=== PATIENT | male | born 1960 | race Caucasian/White ===

== ENCOUNTER → 2016-12-01 | Outpatient (CLI) | payer MEDICAID ==
[~2016-12-01] MED LIST: ALBU8.5H3 INH; AMLO5TAB2 PO; CARV6.252 PO; FLUT1DIS5 IH; MORP-52 PO; OXYC10TA6 PO; OXYC5CAP4; REGADENOSON 0.4 MG/5 ML SYRINGE ONE; SIMV1POW; SIMV20TA3 PO; TIOT18CA INH; [UNRECOGNIZED DRUG - CODE]
== END | disposition home or self-care (01) ==
LOC: CFH 11:53
PROVIDERS: ATTEND Internal Medicine Cardiovascular Disease
DX: R07.9 Chest pain, unspecified (principal)
CPT/HCPCS: 78452; 93017; A9502; J2785

== ENCOUNTER 2017-09-19 09:24 | Inpatient (IN) | payer MEDICAID ==
[~2017-09-19] VITALS: Ht 177.8 cm; Wt 61.2 kg
[~2017-09-19 09:24] MED LIST changes: -ALBU8.5H3 INH; +ALBU8.5H8 INH; +OXYC5CAP2; -OXYC5CAP4; +PANT40TA5 PO; -REGADENOSON 0.4 MG/5 ML SYRINGE ONE; +SUMA100T4 PO; +TAMS-11 PO
[2017-09-19] MEDS ORDERED: FINA5TAB4 PO (09:43)
[2017-09-19] MEDS ORDERED: SODIUM CHLORIDE 0.9% 1,000 ML IV ONE (10:20)
[2017-09-19] MEDS ORDERED: SODIUM CHLORIDE 0.9% 1,000ML IVBOLUS ONE (10:30)
[2017-09-19] MEDS ORDERED: SODIUM CHLORIDE FLUSH 10ML SYR IVF ONE (10:30)
[2017-09-19] MEDS ORDERED: ASPIRIN 81 MG TABLET CHEW PO ONE (10:30)
[2017-09-19] MEDS ORDERED: LORazepam 2 MG/ML, 1ML ONE ×2 (10:32→13:12)
[2017-09-19] MEDS: LORazepam 2 MG/ML, 1ML IVPush PRN ×3 (10:35→13:14)
[2017-09-19 10:50] LABS: BASOPHILS # (AUTO) 0.09 x10^3/uL (0-0.1); BASOPHILS % (AUTO) 1 % (0-1); EOSINOPHILS # (AUTO) 0.03 x10^3/uL (0-0.4); EOSINOPHILS % (AUTO) 0 % (1-7); LYMPHOCYTES # (AUTO) 2.15 x10^3/uL (1-3.4); LYMPHOCYTES % (AUTO) 13 % (22-44); MD NO; MEAN CORPUSCULAR HEMOGLOBIN 32.6 pg (27.5-34.5); MEAN CORPUSCULAR HGB CONC 34.2 g/dL (33.2-36.2); MEAN CORPUSCULAR VOLUME 95.2 fL (81-97); MEAN PLATELET VOLUME 7.6 fL (7.4-10.4); MONOCYTES # (AUTO) 1.44 x10^3/uL (0.2-0.8); MONOCYTES % (AUTO) 9 % (2-9); NEUTROPHILS # (AUTO) 12.36 x10^3/uL (1.8-6.8); NEUTROPHILS % (AUTO) 77 % (42-75); PLATELET COUNT 282 x10^3/uL (130-400); RED BLOOD COUNT 5.39 x10^6/uL (4.38-5.82)
[2017-09-19 11:00] LABS: INTERNATIONAL NORMALIZED RATIO 1.15 (0.93-1.1); PROTHROMBIN TIME 11.9 Seconds (9.6-11.5)
[2017-09-19 11:03] LABS: ALANINE AMINOTRANSFERASE 64 U/L (12-78); ALBUMIN 3.7 g/dL (3.4-5.0); ANION GAP 9 mmol/L (5-15); CALCIUM 8.7 mg/dL (8.5-10.1); CHLORIDE 106 mmol/L (98-107); CREATININE 0.98 mg/dL (0.7-1.3)
[2017-09-19 11:08] LABS: ALKALINE PHOSPHATASE 108 U/L (45-117); BILIRUBIN,TOTAL 0.5 mg/dL (0.2-1.0); TOTAL PROTEIN 7.1 g/dL (6.4-8.2); TROPONIN I < 0.015 ng/mL (0.000-0.045)
[2017-09-19] MEDS ORDERED: THIAMINE 100MG TABLET ONE (11:19)
[2017-09-19] MEDS ORDERED: THIAMINE 100MG TABLET PO ONE (11:30)
[2017-09-19] MEDS ORDERED: ENOXAPARIN 40 MG/0.4 ML SQ SCH (12:00)
[2017-09-19] MEDS ORDERED: LABETALOL 5MG/ML, 20ML IVPush PRN (12:00)
[2017-09-19] MEDS ORDERED: ONDANSETRON 2MG/ML, 2ML IVPush PRN (12:00)
[2017-09-19] MEDS ORDERED: DOCUSATE 100 MG CAPSULE PO PRN (12:00)
[2017-09-19] MEDS ORDERED: ONDANSETRON ODT 4 MG PO PRN (12:00)
[2017-09-19] MEDS ORDERED: SODIUM CHLORIDE FLUSH 10ML SYR IVF PRN (12:00)
[2017-09-19] MEDS ORDERED: AMLODIPINE 5 MG TABLET PO SCH (12:00)
[2017-09-19 12:48] LABS: FREE T4 (FREE THYROXINE) 0.84 ng/dL (0.76-1.46); TROPONIN I < 0.015 ng/mL (0.000-0.045)
[2017-09-19] MEDS ORDERED: LORazepam 2 MG/ML, 1ML IV PRN ×4 (13:00)
[2017-09-19] MEDS ORDERED: LORazepam 1MG TABLET PO PRN ×4 (13:00)
[2017-09-19] MEDS ORDERED: LORazepam 0.5MG TABLET PO PRN (13:00)
[2017-09-19] MEDS ORDERED: PANTOPRAZOLE 20MG TABLET ONE (13:12)
[2017-09-19] MEDS ORDERED: AMLODIPINE 5 MG TABLET ONE (13:12)
[2017-09-19] MEDS ORDERED: ENOXAPARIN 40 MG/0.4 ML ONE (13:13)
[2017-09-19] MEDS: PANTOPROZOLE 40MG TABLET PO SCH ×2 (13:15→20:06)
[2017-09-19] MEDS ORDERED: LACTATED RINGERS 1,000 ML IV SCH (15:00)
[2017-09-19] MEDS ORDERED: MAGNESIUM SULFATE PMX 2GM/50ML 50 ML IV ONE (15:00)
[2017-09-19] MEDS ORDERED: POTASSIUM CHLORIDE 20 MEQ, MAGNESIUM SULFATE 1 GM, FOLIC ACID 1 MG, THIAMINE 100 MG, MV... IV SCH (15:00)
[2017-09-19 15:39] VITALS: BP 118/73
[2017-09-19] MEDS: LORazepam 2 MG/ML, 1ML IV PRN (15:51)
[2017-09-19] MEDS ORDERED: ALBUTEROL SULFATE 2.5 MG/3 ML NPPB PRN (16:00)
[2017-09-19] MEDS ORDERED: NICOTINE 7 MG/24 HR PATCH.TD24 TD SCH (17:00)
[2017-09-19 17:11] LABS: TROPONIN I < 0.015 ng/mL (0.000-0.045)
[2017-09-19 19:07] VITALS: BP 147/87
[2017-09-19 19:44] VITALS: BP 131/78
[2017-09-19] MEDS ORDERED: SALMETEROL IH SCH (21:00)
[2017-09-19] MEDS ORDERED: ALBUTEROL/IPRATROPIUM 2.5MG/0.5MG, 3 ML NPPB SCH (21:00)
[2017-09-19] MEDS ORDERED: SIMVASTATIN 20 MG TABLET PO SCH (21:00)
[2017-09-19] MEDS ORDERED: FLUTICASONE IH SCH (21:00)
[2017-09-19] MEDS ORDERED: CARVEDILOL 6.25 MG TABLET PO SCH (21:00)
[2017-09-20 01:29] VITALS: BP 124/76
[2017-09-20] MEDS: LORazepam 2 MG/ML, 1ML IV PRN (04:45)
[2017-09-20 05:15] LABS: BASOPHILS # (AUTO) 0.05 x10^3/uL (0-0.1); BASOPHILS % (AUTO) 1 % (0-1); EOSINOPHILS # (AUTO) 0.05 x10^3/uL (0-0.4); EOSINOPHILS % (AUTO) 1 % (1-7); LYMPHOCYTES % (AUTO) 13 % (22-44); MD NO; MEAN CORPUSCULAR HEMOGLOBIN 32.5 pg (27.5-34.5); MEAN CORPUSCULAR HGB CONC 33.8 g/dL (33.2-36.2); MEAN PLATELET VOLUME 7.7 fL (7.4-10.4); MONOCYTES # (AUTO) 1.19 x10^3/uL (0.2-0.8); MONOCYTES % (AUTO) 12 % (2-9); NEUTROPHILS # (AUTO) 7.46 x10^3/uL (1.8-6.8); NEUTROPHILS % (AUTO) 74 % (42-75); PLATELET COUNT 239 x10^3/uL (130-400); RED BLOOD COUNT 4.76 x10^6/uL (4.38-5.82); RED CELL DISTRIBUTION WIDTH 12.8 % (9.4-14.8)
[2017-09-20 05:20] LABS: CALCIUM 8.2 mg/dL (8.5-10.1); CHLORIDE 110 mmol/L (98-107)
[2017-09-20 05:34] LABS: ALANINE AMINOTRANSFERASE 43 U/L (12-78); ALBUMIN 2.9 g/dL (3.4-5.0); ALKALINE PHOSPHATASE 93 U/L (45-117); ANION GAP 8 mmol/L (5-15); CREATININE 0.74 mg/dL (0.7-1.3); TOTAL PROTEIN 5.8 g/dL (6.4-8.2)
[2017-09-20 06:50] VITALS: BP 126/78
[2017-09-20] MEDS ORDERED: SODIUM PHOSPHATE 4 MEQ/ML IV SCH (07:00)
[2017-09-20] MEDS ORDERED: SODIUM PHOSPHATE 30 MMOL in SODIUM CHLORIDE 0.9% 500 ML IV ONE (07:00)
[2017-09-20] MEDS ORDERED: SENNA/DOCUSATE TABLET PO SCH (09:00)
[2017-09-20] MEDS ORDERED: TAMSULOSIN 0.4 MG CAP.ER.24H PO SCH (09:00)
[2017-09-20] MEDS ORDERED: PANTOPROZOLE 40MG TABLET PO SCH (09:00)
[2017-09-20] MEDS ORDERED: FINASTERIDE 5 MG TABLET PO SCH (09:00)
== END 2017-09-20 08:30 | disposition left against medical advice (07) | DRG 313 ==
LOC: ED 11:37 → EDIP 11:38 → ED 11:59 → 4EST 13:29
PROVIDERS: ADMIT Hospitalist; ATTEND Hospitalist
DX: R07.9 Chest pain, unspecified (principal); I25.2 Old myocardial infarction; E44.0 Moderate protein-calorie malnutrition; Z68.1 Body mass index [BMI] 19.9 or less, adult; E78.5 Hyperlipidemia, unspecified; F17.210 Nicotine dependence, cigarettes, uncomplicated; I10 Essential (primary) hypertension; J44.9 Chronic obstructive pulmonary disease, unspecified; K21.9 Gastro-esophageal reflux disease without esophagitis; N40.0 Benign prostatic hyperplasia without lower urinary tract symptoms; Z79.82 Long term (current) use of aspirin; Z96.619 Presence of unspecified artificial shoulder joint; Z96.659 Presence of unspecified artificial knee joint; G43.909 Migraine, unspecified, not intractable, without status migrainosus; F10.129 Alcohol abuse with intoxication, unspecified; Z79.899 Other long term (current) drug therapy; Z88.8 Allergy status to other drugs, medicaments and biological substances
CPT/HCPCS: 36415; 71045; 80053; 80307; 83690; 83735; 83880; 84100; 84439; 84443; 84484; 85025; 85610; 85730; 93005; 96360; 96361; J1650; J3411; J3475; J3480; J7042; J2060; J7030; J7040; J7120

== ENCOUNTER → 2017-11-07 | Outpatient (CLI) | payer MEDICAID ==
[~2017-11-07] MED LIST changes: +ALBU6.7H INH; +FINA5TAB4 PO; +FLUC100T4 PO; +OXYC5CAP2 PO; +PREG50CA PO
== END ==
LOC: STAR 08:54
PROVIDERS: ATTEND Student in an Organized Health Care Education/Training Program
DX: Z02.9 Encounter for administrative examinations, unspecified (principal)

== ENCOUNTER 2017-11-16 08:46 | Day surgery (SDC) | payer MEDICAID ==
[~2017-11-16] VITALS: Ht 177.8 cm; Wt 62.2 kg
[~2017-11-16 08:46] MED LIST changes: -FLUC100T4 PO
[2017-11-16] MEDS ORDERED: LACTATED RINGERS 1,000 ML IV SCH (09:07)
[2017-11-16 09:19] VITALS: BP 136/91
[2017-11-16] MEDS ORDERED: FLUC100T4 PO (09:19)
[2017-11-16] MEDS ORDERED: GABAPENTIN 300 MG CAPSULE PO ONE (10:00)
[2017-11-16] MEDS ORDERED: FAMOTIDINE 20 MG TABLET PO ONE (10:00)
[2017-11-16] MEDS ORDERED: ONDANSETRON ODT 8 MG PO ONE (10:00)
[2017-11-16] MEDS ORDERED: OXYcodone IR 5MG TABLET PO ONE (10:00)
[2017-11-16] MEDS ORDERED: MIDAZOLAM 1 MG/ML, 2ML ONE (10:28)
[2017-11-16] MEDS ORDERED: FENTANYL PF 100 MCG/2ML ONE ×3 (10:28→12:41)
[2017-11-16] MEDS ORDERED: KETOROLAC 30 MG/1 ML ONE (11:05)
[2017-11-16] MEDS ORDERED: CEFAZOLIN 1,000 MG ONE (11:05)
[2017-11-16] MEDS ORDERED: PROPOFOL 10 MG/ML, 20ML ONE (11:05)
[2017-11-16] MEDS ORDERED: DEXAMETHASONE 4 MG/ML, 1ML ONE (11:05)
[2017-11-16] MEDS: FENTANYL PF 100 MCG/2ML IV PRN ×2 (12:41→13:02)
[2017-11-16] MEDS ORDERED: OXYcodone 5 MG/5 ML ORAL.SOL UDC ONE (13:04)
[2017-11-16] MEDS ORDERED: hydrALAzine 20 MG/ML, 1ML IV PRN (13:30)
[2017-11-16] MEDS ORDERED: ONDANSETRON ODT 8 MG PO PRN (13:30)
[2017-11-16] MEDS ORDERED: LABETALOL 5MG/ML, 20ML IV PRN (13:30)
[2017-11-16] MEDS ORDERED: PROMETHAZINE 25 MG/ML, 1ML IV PRN (13:30)
[2017-11-16] MEDS ORDERED: MEPERIDINE/PF 25MG/0.5ML IVPush PRN (13:30)
[2017-11-16] MEDS ORDERED: HYDROmorphone 1 MG/ML, 1ML IV PRN (13:30)
[2017-11-16] MEDS ORDERED: EPHEDRINE 50 MG/ML, 1ML IVPush PRN (13:30)
[2017-11-16] MEDS ORDERED: MIDAZOLAM 1 MG/ML, 2ML IV PRN (13:30)
[2017-11-16] MEDS ORDERED: ALBUTEROL/IPRATROPIUM 2.5MG/0.5MG, 3 ML NPPB PRN (13:30)
[2017-11-16] MEDS ORDERED: OXYcodone 5 MG/5 ML ORAL.SOL UDC PO PRN (13:30)
== END 2017-11-16 15:35 | disposition home or self-care (01) ==
LOC: OUT 08:46
PROVIDERS: ATTEND Student in an Organized Health Care Education/Training Program
DX: N40.1 Benign prostatic hyperplasia with lower urinary tract symptoms (principal); E03.9 Hypothyroidism, unspecified; J44.9 Chronic obstructive pulmonary disease, unspecified; K21.9 Gastro-esophageal reflux disease without esophagitis; I25.10 Atherosclerotic heart disease of native coronary artery without angina pectoris; G47.33 Obstructive sleep apnea (adult) (pediatric); Z72.89 Other problems related to lifestyle; Z87.891 Personal history of nicotine dependence; Z86.19 Personal history of other infectious and parasitic diseases; Z88.6 Allergy status to analgesic agent; Z79.899 Other long term (current) drug therapy
CPT/HCPCS: 52648; J0690; J1100; J1885; J2250; J2704; J3010; J7120; Q0162

== ENCOUNTER 2018-06-01 09:22 | Emergency (ER) | payer MEDICAID ==
[~2018-06-01] VITALS: Ht 172.7 cm; Wt 65.8 kg
[~2018-06-01 09:22] MED LIST changes: +AMLO-150 PO; -AMLO5TAB2 PO; +FLUC100T4 PO
--- NOTE | 2018-06-01 09:30 | NUR ---
PRODUCT TECHNOLOGY SCIENTIST: EKG COMPLETED.
--- NOTE | 2018-06-01 10:01 | NUR ---
PT REPORTS HAVING CP FOR 6 DAYS. PT STATES PAIN IS IMPROVING. REPORTED THAT OXYCODONE IS NOT HELPING HIS PAIN. PT IS ALERT, ORIENTED, WITH NAD. PT IS CONNECTED TO THE MONITOR. CALL LIGHT WITHIN REACH.
[2018-06-01 10:42] LABS: MICROSCOPIC NOT IND
[2018-06-01 10:47] LABS: CULTURE INDICATED? NO
[2018-06-01 11:00] LABS: BASOPHILS # (AUTO) 0.07 x10^3/uL (0-0.1); BASOPHILS % (AUTO) 1 % (0-1); EOSINOPHILS # (AUTO) 0.15 x10^3/uL (0-0.4); EOSINOPHILS % (AUTO) 2 % (1-7); LYMPHOCYTES # (AUTO) 2.48 x10^3/uL (1-3.4); LYMPHOCYTES % (AUTO) 27 % (22-44); MD NO; MEAN CORPUSCULAR HEMOGLOBIN 32.2 pg (27.5-34.5); MEAN CORPUSCULAR HGB CONC 34.2 g/dL (33.2-36.2); MEAN CORPUSCULAR VOLUME 93.9 fL (81-97); MONOCYTES # (AUTO) 0.87 x10^3/uL (0.2-0.8); MONOCYTES % (AUTO) 9 % (2-9); NEUTROPHILS # (AUTO) 5.78 x10^3/uL (1.8-6.8); NEUTROPHILS % (AUTO) 62 % (42-75); PLATELET COUNT 227 x10^3/uL (130-400); RED BLOOD COUNT 4.53 x10^6/uL (4.38-5.82); RED CELL DISTRIBUTION WIDTH 12.9 % (9.4-14.8)
--- NOTE | 2018-06-01 11:05 | NUR ---
PT AMBULATED TO THE BATHROOM WITH STEADY GAIT.
[2018-06-01 11:07] LABS: ALANINE AMINOTRANSFERASE 26 U/L (12-78); ALBUMIN 3.3 g/dL (3.4-5.0); ANION GAP 7 mmol/L (5-15); CHLORIDE 107 mmol/L (98-107); CREATININE 0.83 mg/dL (0.7-1.3)
[2018-06-01 11:09] LABS: ALKALINE PHOSPHATASE 114 U/L (45-117); BILIRUBIN,TOTAL 0.5 mg/dL (0.2-1.0); TOTAL PROTEIN 6.3 g/dL (6.4-8.2)
[2018-06-01 11:36] VITALS: BP 138/78
--- NOTE | 2018-06-01 11:36 | NUR ---
PT IS RESTING IN BED, RESPIRATIONS EQUAL AND NON LABORED. NAD. PT HAS DISCONNECTED HIMSELF FROM THE MONITOR. CALL LIGHT WITHIN REACH.
--- NOTE | 2018-06-01 12:24 | NUR ---
Gio oden in [facility] - 06/01/18 at 1225 by RYNE Patient given discharge instructions and they have confirmed that they understand the instructions. Patient ambulatory with steady gait.
--- NOTE | 2018-06-01 12:25 | NUR ---
PT LEFT BEFORE SIGNING DC PAPERS.
== END 2018-06-01 12:26 | disposition home or self-care (01) ==
LOC: ED 12:20
DX: R10.32 Left lower quadrant pain (principal); I10 Essential (primary) hypertension; E78.5 Hyperlipidemia, unspecified; J44.9 Chronic obstructive pulmonary disease, unspecified; G43.909 Migraine, unspecified, not intractable, without status migrainosus; F17.200 Nicotine dependence, unspecified, uncomplicated
CPT/HCPCS: 36415; 74022; 74176; 80053; 81003; 83690; 85025; 93005; 99284

== ENCOUNTER 2018-11-14 14:07 | Emergency (ER) | payer MEDICAID ==
[~2018-11-14] VITALS: Ht 177.8 cm; Wt 64.0 kg
--- NOTE | 2018-11-14 14:46 | NUR ---
PT REPORTS SORE THROAT X 7 DAYS. PT REPORTS THAT HE HAS HAD ESOPHAGUS SURGERY AND HAS HAD IT STRETCHED OUT FOR YEAST INFECTION. PT REORTS DIFFCIULTY BREATHING. PT REPORTS HE HAS HAD TO MAKES HIMSELF THROW UP SINCE THE FOOD WONT GO DOWN. PT ABLE TO SWALLOW H20. PCP UNABLE TO SEE TODAY. COARSE VOICE/NO WOB NOTED/POX 96%/ THROAT APPEARS IRRITATED. NO EXTERNAL NECK SWELLING NOTED PROVIDER TO BEDSIDE
--- NOTE | 2018-11-14 15:04 | NUR ---
PIV PLACED/LABS SENT REPORT TO KRISTINE BRIDGES
--- NOTE | 2018-11-14 15:25 | NUR ---
RECEIVED REPORT FROM LUIS A BRIDGES AND [facility]
[2018-11-14 15:30] LABS: BASOPHILS % (AUTO) 1 % (0-1); EOSINOPHILS # (AUTO) 0.09 x10^3/uL (0-0.4); EOSINOPHILS % (AUTO) 1 % (1-7); LYMPHOCYTES # (AUTO) 2.04 x10^3/uL (1-3.4); LYMPHOCYTES % (AUTO) 21 % (22-44); MD NO; MEAN CORPUSCULAR HEMOGLOBIN 32.4 pg (27.5-34.5); MEAN CORPUSCULAR HGB CONC 33.4 g/dL (33.2-36.2); MEAN PLATELET VOLUME 7.9 fL (7.4-10.4); MONOCYTES # (AUTO) 1.14 x10^3/uL (0.2-0.8); MONOCYTES % (AUTO) 12 % (2-9); NEUTROPHILS # (AUTO) 6.23 x10^3/uL (1.8-6.8); NEUTROPHILS % (AUTO) 65 % (42-75); PLATELET COUNT 276 x10^3/uL (130-400); RED CELL DISTRIBUTION WIDTH 12.9 % (9.4-14.8)
[2018-11-14] MEDS ORDERED: ONDANSETRON 2MG/ML, 2ML IVPush ONE (15:30)
[2018-11-14] MEDS ORDERED: morphine SULFATE 10 MG/ML, 1ML IVPush ONE (15:30)
[2018-11-14 15:38] LABS: ALANINE AMINOTRANSFERASE 32 U/L (12-78); ALBUMIN 3.9 g/dL (3.4-5.0); ANION GAP 9 mmol/L (5-15); CALCIUM 9.6 mg/dL (8.5-10.1); CHLORIDE 110 mmol/L (98-107); CREATININE 1.16 mg/dL (0.7-1.3)
[2018-11-14 15:40] LABS: ALKALINE PHOSPHATASE 99 U/L (45-117); BILIRUBIN,TOTAL 0.6 mg/dL (0.2-1.0); TOTAL PROTEIN 7.3 g/dL (6.4-8.2)
[2018-11-14] MEDS ORDERED: ONDANSETRON 2MG/ML, 2ML ONE (15:50)
[2018-11-14] MEDS ORDERED: MORPHINE SULFATE 4 MG/ML, 1ML ONE (15:51)
--- NOTE | 2018-11-14 15:57 | NUR ---
TASK RN - PT MEDICATED PER ORDER. UPDATED ON POC. ASSISTED WITH URINAL. STEADY ON FEET. BACK TO [facility]. SPO2 MONITOR IN PLACE. CALL LIGHT IN REACH. NADN. UPDATED ON POC. WAITING ON RAD FOR CT.
[2018-11-14] MEDS ORDERED: OMNIPAQUE 350 MG/ML, 100ML BOTTLE ONE (16:28)
[2018-11-14] MEDS ORDERED: MAALOX/HYOSCYAMINE/LIDOCAINE 45 ML BTL PO ONE (17:00)
--- NOTE | 2018-11-14 17:21 | NUR ---
PROVIDER AT BEDSIDE DISCUSSING CT RESULTS
[2018-11-14] MEDS ORDERED: MAALOX/HYOSCYAMINE/LIDOCAINE 45 ML BTL ONE (17:22)
[2018-11-14 17:32] VITALS: BP 136/83
== END 2018-11-14 17:34 ==
LOC: ED 16:10
DX: K20.9 Esophagitis, unspecified (principal); R13.10 Dysphagia, unspecified; I10 Essential (primary) hypertension; Z87.891 Personal history of nicotine dependence
CPT/HCPCS: 36415; 70491; 80053; 85025; 93005; 96374; 96375; 99284; J2270; J2405; Q9967

== ENCOUNTER → 2019-04-04 | Outpatient (CLI) | payer MEDICAID ==
[~2019-04-04] MED LIST changes: -ALBU6.7H INH; +ALBU6.7H8 INH
== END | disposition home or self-care (01) ==
LOC: CFH 14:00
PROVIDERS: ATTEND Physician Assistant Surgical
DX: M25.511 Pain in right shoulder (principal); J43.9 Emphysema, unspecified; J45.909 Unspecified asthma, uncomplicated; B94.8 Sequelae of other specified infectious and parasitic diseases; Z72.821 Inadequate sleep hygiene; Z87.898 Personal history of other specified conditions; Z98.890 Other specified postprocedural states

== ENCOUNTER 2019-06-28 09:49 | Day surgery (SDC) | payer MEDICAID ==
[~2019-06-28] VITALS: Ht 177.8 cm; Wt 67.5 kg
[~2019-06-28 09:49] MED LIST changes: +BUPIVACAINE/PF 0.5% ONE; +CYCL-259 PO; +ELET40TA PO; +EPINEPHRINE 1 MG/ML, 1ML ONE; +FREM225S IM; +LIDOCAINE 1%, 20ML ONE; +LINA145C PO; +MORP15TA PO; +SIMV20TA19 PO; -SIMV20TA3 PO; +TRAZ50TA66 PO
[2019-06-28] MEDS ORDERED: LACTATED RINGERS 1,000 ML IV SCH (10:00)
[2019-06-28 10:15] VITALS: BP 125/84
[2019-06-28] MEDS ORDERED: GABAPENTIN 300 MG CAPSULE ONE ×2 (11:08→11:43)
[2019-06-28] MEDS ORDERED: MIDAZOLAM 1 MG/ML, 2ML ONE ×3 (11:43→12:38)
[2019-06-28] MEDS ORDERED: FENTANYL PF 100 MCG/2ML ONE ×3 (11:43→15:31)
[2019-06-28] MEDS ORDERED: ONDANSETRON 2MG/ML, 2ML ONE (12:38)
[2019-06-28] MEDS ORDERED: PROPOFOL 10 MG/ML, 20ML ONE (12:38)
[2019-06-28] MEDS ORDERED: ROCURONIUM 10 MG/ML,10ML ONE (12:38)
[2019-06-28] MEDS ORDERED: DEXAMETHASONE 4 MG/ML, 1ML ONE (12:38)
[2019-06-28] MEDS ORDERED: CEFAZOLIN 1,000 MG ONE (12:38)
[2019-06-28] MEDS ORDERED: BUPIVACAINE/PF-EPI 0.5% 1:200K INFIL ONE (13:21)
[2019-06-28] MEDS ORDERED: LIDOCAINE 1%-EPI 1:100K, 30ML INFIL ONE (13:21)
[2019-06-28] MEDS ORDERED: ALBUTEROL SULFATE 2.5 MG/3 ML NPPB PRN (15:30)
[2019-06-28] MEDS ORDERED: morphine SULFATE 15 MG TAB.IR PO SCH (15:30)
[2019-06-28] MEDS ORDERED: ALBUTEROL SULFATE INH PRN (15:30)
[2019-06-28] MEDS ORDERED: DIAZEPAM 5 MG/ML, 2ML IVPush PRN (15:30)
[2019-06-28] MEDS ORDERED: LABETALOL 5MG/ML, 20ML IV PRN (15:30)
[2019-06-28] MEDS ORDERED: PROMETHAZINE 25 MG/ML, 1ML IV PRN (15:30)
[2019-06-28] MEDS ORDERED: KETOROLAC 30 MG/1 ML IV PRN (15:30)
[2019-06-28] MEDS ORDERED: HYDROmorphone 2 MG/ML, 1ML IVPush PRN (15:30)
[2019-06-28] MEDS ORDERED: FREMANEZUMAB VFRM 225 MG IM SCH (15:30)
[2019-06-28] MEDS ORDERED: ACETAMINOPHEN 325 MG TABLET PO PRN (15:30)
[2019-06-28] MEDS ORDERED: MEPERIDINE/PF 25MG/0.5ML IVPush PRN (15:30)
[2019-06-28] MEDS ORDERED: CYCLOBENZAPRINE 10 MG TABLET ONE (15:30)
[2019-06-28] MEDS ORDERED: hydrALAzine 20 MG/ML, 1ML IV PRN (15:30)
[2019-06-28] MEDS ORDERED: CYCLOBENZAPRINE 10 MG TABLET PO PRN (15:30)
[2019-06-28] MEDS ORDERED: OXYcodone 5 MG/5 ML ORAL.SOL UDC PO PRN (15:30)
[2019-06-28] MEDS: FENTANYL PF 100 MCG/2ML IV PRN ×2 (15:33→15:38)
[2019-06-28] MEDS ORDERED: OXYcodone 5 MG/5 ML ORAL.SOL UDC ONE (15:50)
[2019-06-28] MEDS ORDERED: TEMPLATE NON-FORMULARY MED. (Oxycodone Hcl** 10 MG) PO SCH (16:00)
[2019-06-28] MEDS ORDERED: CARVEDILOL 6.25 MG TABLET PO SCH (21:00)
[2019-06-28] MEDS ORDERED: SIMVASTATIN 20 MG TABLET PO SCH (21:00)
[2019-06-28] MEDS ORDERED: TEMPLATE NON-FORMULARY MED. (Fluticasone/Salmeterol** (Advair 500-50 Diskus**) 1 PUFF) IH SCH (21:00)
[2019-06-28] MEDS ORDERED: TRAZODONE 50MG TABLET PO SCH (21:00)
[2019-06-29] MEDS ORDERED: TEMPLATE NON-FORMULARY MED. (Linaclotide** (Linzess**) 145 MCG) PO SCH (09:00)
[2019-06-29] MEDS ORDERED: PANTOPROZOLE 40MG TABLET PO SCH (09:00)
[2019-06-29] MEDS ORDERED: TEMPLATE NON-FORMULARY MED. (Tiotropium Bromide** (Spiriva**) 18 MCG) INH SCH (09:00)
[2019-06-29] MEDS ORDERED: ELETRIPTAN 40MG TABLET PO SCH (09:00)
== END 2019-06-28 18:00 | disposition home or self-care (01) ==
LOC: OUT 09:49
PROVIDERS: ATTEND Orthopaedic Surgery
DX: T84.89XA Other specified complication of internal orthopedic prosthetic devices, implants and grafts, initial encounter (principal); S46.111A Strain of muscle, fascia and tendon of long head of biceps, right arm, initial encounter; M24.011 Loose body in right shoulder; M65.811 Other synovitis and tenosynovitis, right shoulder; I10 Essential (primary) hypertension; E78.5 Hyperlipidemia, unspecified; J44.9 Chronic obstructive pulmonary disease, unspecified; G47.33 Obstructive sleep apnea (adult) (pediatric); Z79.891 Long term (current) use of opiate analgesic; Z79.899 Other long term (current) drug therapy; Z88.5 Allergy status to narcotic agent; Z88.8 Allergy status to other drugs, medicaments and biological substances; Z98.890 Other specified postprocedural states; Z82.3 Family history of stroke; Z82.49 Family history of ischemic heart disease and other diseases of the circulatory system; X58.XXXA Exposure to other specified factors, initial encounter; Y93.89 Activity, other specified; Y92.89 Other specified places as the place of occurrence of the external cause; Y99.8 Other external cause status; Y83.8 Other surgical procedures as the cause of abnormal reaction of the patient, or of later complication, without mention of misadventure at the time of the procedure
CPT/HCPCS: 23430; 23473; 29823; 64415; 87015; 87070; 87075; 87102; 87116; 87176; 87205; 87206; C1762; J0171; J0690; J1100; J2250; J2405; J2704; J3010; J3490; J7120; 87076

== ENCOUNTER 2019-07-20 10:28 | Emergency (ER) | payer MEDICAID ==
[~2019-07-20] VITALS: Ht 177.8 cm; Wt 68.0 kg
[~2019-07-20 10:28] MED LIST changes: -BUPIVACAINE/PF 0.5% ONE; -EPINEPHRINE 1 MG/ML, 1ML ONE; -LIDOCAINE 1%, 20ML ONE
[2019-07-20 10:33] VITALS: BP 123/81
--- NOTE | 2019-07-20 14:11 | NUR ---
PT CALLED BACK TO TRIAGE FOR VITALS. NO ANSWER
--- NOTE | 2019-07-20 15:05 | NUR ---
NO ANSWER WHEN CALLED FOR PIT.
--- NOTE | 2019-07-20 15:21 | NUR ---
MINCING MACHINE OPERATOR: PT CALLED FOR ROOM, NO ANSWER
== END 2019-07-20 15:35 | disposition left against medical advice (07) ==
LOC: ED 15:00
DX: R42 Dizziness and giddiness (principal); R06.00 Dyspnea, unspecified; R53.1 Weakness; Z53.21 Procedure and treatment not carried out due to patient leaving prior to being seen by health care provider
CPT/HCPCS: 93005

== ENCOUNTER 2019-11-03 10:10 | Emergency (ER) | payer MEDICAID ==
[~2019-11-03] VITALS: Ht 180.3 cm; Wt 66.5 kg
--- NOTE | 2019-11-03 10:51 | NUR ---
JIG BOX OPERATOR: PT AMBULATORY WITH STEADY GAIT TO ROOM AT THIS TIME. RUDDY
[2019-11-03] MEDS ORDERED: OXYC10TA6 PO (12:00)
[2019-11-03] MEDS ORDERED: AMLODIPINE PO (12:00)
[2019-11-03] MEDS ORDERED: ASPI-496 PO (12:00)
[2019-11-03 12:06] VITALS: BP 127/79
[2019-11-03 12:15] LABS: BASOPHILS # (AUTO) 0.06 x10^3/uL (0-0.1); BASOPHILS % (AUTO) 1 % (0-1); EOSINOPHILS % (AUTO) 1 % (1-7); LYMPHOCYTES # (AUTO) 2.02 x10^3/uL (1-3.4); LYMPHOCYTES % (AUTO) 21 % (22-44); MD NO; MEAN CORPUSCULAR HEMOGLOBIN 30.9 pg (27.5-34.5); MEAN CORPUSCULAR HGB CONC 33.5 g/dL (33.2-36.2); MEAN CORPUSCULAR VOLUME 92.5 fL (81-97); MEAN PLATELET VOLUME 7.7 fL (7.4-10.4); MONOCYTES # (AUTO) 0.96 x10^3/uL (0.2-0.8); MONOCYTES % (AUTO) 10 % (2-9); NEUTROPHILS # (AUTO) 6.71 x10^3/uL (1.8-6.8); NEUTROPHILS % (AUTO) 68 % (42-75); PLATELET COUNT 243 x10^3/uL (130-400); RED BLOOD COUNT 4.99 x10^6/uL (4.38-5.82); RED CELL DISTRIBUTION WIDTH 14.2 % (9.4-14.8)
--- NOTE | 2019-11-03 12:22 | NUR ---
TASK RN: FIRST CONTACT WITH PT: Pt resting on gurney connected to NIBP cuff, continous pulse ox monitor, and tobacco sizer. Call light within reach. Pt states, "I was doing a stress test on the treadmill to get cleared so I can have another shoulder repair surgery (right shoulder) and I got so short of breath I couldn't finish the test. Then I was going up some stairs and I couldn't catch my breath." Pt states sob worse on exertion. Pt states, "I have severe depression, my mother does too. I live with my folks, I take care of them, I have for 17 years ever since my dad had a stroke....I am trying to fix my drinking habit...I can quit cold turkey drinking, I have never had a seizure when I quit...". Pt denies SA or plans or past history of SA.
[2019-11-03 12:24] LABS: ALANINE AMINOTRANSFERASE 36 U/L (12-78); ALBUMIN 3.4 g/dL (3.4-5.0); ANION GAP 6 mmol/L (5-15); CALCIUM 8.7 mg/dL (8.5-10.1); CHLORIDE 109 mmol/L (98-107); CREATININE 0.87 mg/dL (0.7-1.3)
[2019-11-03 12:28] LABS: ALKALINE PHOSPHATASE 94 U/L (45-117); BILIRUBIN,TOTAL 0.5 mg/dL (0.2-1.0); TOTAL PROTEIN 6.7 g/dL (6.4-8.2); TROPONIN I < 0.015 ng/mL (0.000-0.045)
== END 2019-11-03 12:59 | disposition home or self-care (01) ==
LOC: ED 12:31
DX: R07.89 Other chest pain (principal); R06.00 Dyspnea, unspecified; I10 Essential (primary) hypertension; J44.9 Chronic obstructive pulmonary disease, unspecified; E78.5 Hyperlipidemia, unspecified; F17.200 Nicotine dependence, unspecified, uncomplicated
CPT/HCPCS: 36415; 71045; 80053; 84484; 85025; 85379; 93005; 99285

== ENCOUNTER → 2019-11-20 | Outpatient (CLI) | payer MEDICAID ==
[~2019-11-20] MED LIST changes: +AMLODIPINE PO; +ASPI-496 PO
== END | disposition home or self-care (01) ==
LOC: CFH 08:36
PROVIDERS: ATTEND Internal Medicine Cardiovascular Disease
DX: Z01.810 Encounter for preprocedural cardiovascular examination (principal); R06.02 Shortness of breath; R07.9 Chest pain, unspecified
CPT/HCPCS: 78452; 93017; A9502

== ENCOUNTER 2019-12-06 12:02 | Day surgery (SDC) | payer MEDICAID ==
[~2019-12-06] VITALS: Ht 180.3 cm; Wt 65.0 kg
[2019-12-06 12:59] LABS: BASOPHILS # (AUTO) 0.04 x10^3/uL (0-0.1); BASOPHILS % (AUTO) 0 % (0-1); EOSINOPHILS # (AUTO) 0.14 x10^3/uL (0-0.4); EOSINOPHILS % (AUTO) 1 % (1-7); LYMPHOCYTES # (AUTO) 2.43 x10^3/uL (1-3.4); LYMPHOCYTES % (AUTO) 22 % (22-44); MD NO; MEAN CORPUSCULAR HEMOGLOBIN 30.8 pg (27.5-34.5); MEAN CORPUSCULAR HGB CONC 32.8 g/dL (33.2-36.2); MEAN CORPUSCULAR VOLUME 93.9 fL (81-97); MEAN PLATELET VOLUME 7.5 fL (7.4-10.4); MONOCYTES # (AUTO) 0.89 x10^3/uL (0.2-0.8); MONOCYTES % (AUTO) 8 % (2-9); NEUTROPHILS % (AUTO) 69 % (42-75); PLATELET COUNT 265 x10^3/uL (130-400); RED BLOOD COUNT 4.97 x10^6/uL (4.38-5.82); RED CELL DISTRIBUTION WIDTH 13.9 % (9.4-14.8)
[2019-12-06 13:14] LABS: ANION GAP 8 mmol/L (5-15); CALCIUM 8.8 mg/dL (8.5-10.1); CHLORIDE 109 mmol/L (98-107); CREATININE 0.91 mg/dL (0.7-1.3)
[2019-12-06] MEDS ORDERED: FENTANYL PF 100 MCG/2ML ONE (14:44)
[2019-12-06] MEDS ORDERED: LIDOCAINE 2%, 20ML ONE (14:44)
[2019-12-06] MEDS ORDERED: MIDAZOLAM 1 MG/ML, 5ML ONE (14:44)
[2019-12-06] MEDS ORDERED: OXYcodone IR 5MG TABLET ONE (15:29)
[2019-12-06] MEDS ORDERED: OXYcodone IR 5MG TABLET PO PRN (15:30)
== END 2019-12-06 17:30 | disposition home or self-care (01) ==
LOC: CACL 12:02
PROVIDERS: ATTEND Internal Medicine Cardiovascular Disease
DX: I20.8 Other forms of angina pectoris (principal); I10 Essential (primary) hypertension; E78.5 Hyperlipidemia, unspecified; G43.709 Chronic migraine without aura, not intractable, without status migrainosus; J44.9 Chronic obstructive pulmonary disease, unspecified; M54.89 Other dorsalgia; G47.30 Sleep apnea, unspecified; R41.3 Other amnesia; E66.3 Overweight; F17.210 Nicotine dependence, cigarettes, uncomplicated; Z68.21 Body mass index [BMI] 21.0-21.9, adult; Z79.82 Long term (current) use of aspirin; Z79.891 Long term (current) use of opiate analgesic; Z79.899 Other long term (current) drug therapy; Z88.8 Allergy status to other drugs, medicaments and biological substances; Z82.49 Family history of ischemic heart disease and other diseases of the circulatory system
CPT/HCPCS: 36415; 80048; 85025; 93458; 99156; C1760; C1769; C1894; J2250; J3010; Q9967

== ENCOUNTER → 2019-12-12 | Outpatient (CLI) | payer MEDICAID, OTHER | END | disposition home or self-care (01) | LOC: CFH 09:28 | PROVIDERS: ATTEND Internal Medicine | DX: Z12.2 Encounter for screening for malignant neoplasm of respiratory organs (principal); I25.10 Atherosclerotic heart disease of native coronary artery without angina pectoris; F17.210 Nicotine dependence, cigarettes, uncomplicated | CPT/HCPCS: G0297 ==

== ENCOUNTER 2020-11-12 10:22 | Emergency (ER) | payer MEDICAID, OTHER ==
[~2020-11-12] VITALS: Ht 177.8 cm; Wt 71.0 kg
[~2020-11-12 10:22] MED LIST changes: -CYCL-259 PO; +CYCL10TA2 PO; -PANT40TA5 PO; +PANT40TA6 PO
[2020-11-12 10:28] VITALS: BP_SYST 118
--- NOTE | 2020-11-12 11:13 | NUR ---
pt eloped prior to recieving knee immobilizer or crutches or dc paperwork
== END 2020-11-12 11:14 | disposition left against medical advice (07) ==
LOC: ED 11:03
DX: M23.51 Chronic instability of knee, right knee (principal); I10 Essential (primary) hypertension
CPT/HCPCS: 99281

== ENCOUNTER 2020-12-19 10:33 | Emergency (ER) | payer MEDICAID ==
[~2020-12-19] VITALS: Ht 180.3 cm; Wt 69.7 kg
[2020-12-19] MEDS ORDERED: SODIUM CHLORIDE FLUSH 10ML SYR IVF ONE (11:30)
[2020-12-19 11:50] LABS: MICROSCOPIC NOT IND
[2020-12-19 11:59] LABS: BASOPHILS % (AUTO) 1 % (0-1); EOSINOPHILS % (AUTO) 2 % (1-7); LYMPHOCYTES % (AUTO) 30 % (22-44); MEAN CORPUSCULAR HEMOGLOBIN 30.1 pg (27.5-34.5); MONOCYTES % (AUTO) 14 % (2-9); NEUTROPHILS % (AUTO) 53 % (42-75); PLATELET COUNT 271 x10^3/uL (130-400); RED BLOOD COUNT 5.12 x10^6/uL (4.38-5.82); RED CELL DISTRIBUTION WIDTH 16.3 % (9.4-14.8)
[2020-12-19 12:31] LABS: ALANINE AMINOTRANSFERASE 24 U/L (12-78); ALKALINE PHOSPHATASE 105 U/L (45-117); ANION GAP 5 mmol/L (5-15); BILIRUBIN,TOTAL 0.4 mg/dL (0.2-1.0); CALCIUM 9.8 mg/dL (8.5-10.1); CHLORIDE 105 mmol/L (98-107); CREATININE 0.94 mg/dL (0.7-1.3); TOTAL PROTEIN 7.6 g/dL (6.4-8.2)
[2020-12-19 12:32] LABS: ALBUMIN 3.5 g/dL (3.4-5.0)
--- NOTE | 2020-12-19 13:11 | NUR ---
CEMENTER MACHINE: PT TO ROOM FROM [facility] G[facility]O
[2020-12-19] MEDS ORDERED: OMNIPAQUE 350 MG/ML, 100ML BOTTLE ONE (13:50)
--- NOTE | 2020-12-19 13:58 | NUR ---
PT BIB SELF VIA POV. PER PT HE HAS RLQ ABD PAIN. PT DENIES DIARRHEA OR URINARY SYMPTOMS AT THIS TIME. 20G PIV PLACED IN R AC FOR CT WITH CONTRAST. PT RESTING IN [facility], MONITORING IN PLACE, RUDDY AT THIS TIME, WCCESAR.
[2020-12-19 14:08] VITALS: BP 121/75
--- NOTE | 2020-12-19 14:55 | NUR ---
PT ELOPED PRIOR TO RECEIVING DISCHARGE INSTRUCTIONS AND EDUCATION. PIV DISCONTINUED. PT STATED "I DON'T WANNA WAIT FOR PAPERS."
== END 2020-12-19 15:13 | disposition left against medical advice (07) ==
LOC: ED 11:10
DX: R10.31 Right lower quadrant pain (principal); I10 Essential (primary) hypertension; E78.5 Hyperlipidemia, unspecified; F17.200 Nicotine dependence, unspecified, uncomplicated
CPT/HCPCS: 36415; 74177; 80053; 81003; 83690; 85025; 99285; Q9967

== ENCOUNTER → 2020-12-25 | Outpatient (CLI) | payer MEDICAID | END | disposition home or self-care (01) | LOC: CFH 13:31 | PROVIDERS: ATTEND Internal Medicine | DX: Z12.2 Encounter for screening for malignant neoplasm of respiratory organs (principal); F17.210 Nicotine dependence, cigarettes, uncomplicated; J43.9 Emphysema, unspecified; J98.4 Other disorders of lung; I70.0 Atherosclerosis of aorta; I25.10 Atherosclerotic heart disease of native coronary artery without angina pectoris | CPT/HCPCS: 71271 ==